=== PATIENT | female | born 1975 | race Two or more races ===

== ENCOUNTER → 2023-12-31 17:26 | Outpatient (REF) | payer OTHER, SELFPAY | LOC: MRI 17:26 | PROVIDERS: ATTENDING PHYSICIAN Internal Medicine Gastroenterology; FAMILY PHYSICIAN Emergency Medicine | DX: K62.9 Disease of anus and rectum, unspecified (principal) | CPT/HCPCS: 72197; A9575 ==

== ENCOUNTER 2024-02-22 11:47 | Emergency (ER) | payer OTHER, SELFPAY ==
[2024-02-22 11:53] VITALS: BP 108/85
--- NOTE | 2024-02-22 12:32 | ED.GENMED ---
History of Present Illness
<Janice Gutierrez PA-C - Last Filed: 02/22/24 16:57>
General
Chief Complaint: Fatigue
Source: patient
Exam Limitations: none
Time Seen by Provider: 02/22/24 12:11
Nursing documentation reviewed up to this point in time: agreed with
Travel History
Have you had any contact with someone who has COVID-19?: No
Do you have any symptoms of coronavirus? Fever > 100 degrees, chills, cough, shortness of breath, sore throat, loss of taste or smell, muscle aches, or headache?: No
History of Present Illness
History of Present Illness:
Patient is a 48 year old female with history HTN presenting to the emergency department for evaluation of fatigue and generalized body aches for one day. Patient states symptoms started yesterday morning when she woke up and describes generalized
bodyaches and fatigue worsening throughout the day yesterday and today. She reports mild headache and some mild lower abdominal pain today. She does endorse a possible subjective fever yesterday. She took Advil this morning around 11 AM with
improvement in symptoms. Patient denies any chest pain, shortness of breath, nausea, vomiting, or anorexia. She denies any sore throat or cough. She does report possible dysuria about a week ago. Denies any back pain.
Patient was seen by her primary care provider this morning where she had a negative COVID and flu test. She was sent to the emergency department for 'lab work to make sure her organs are functioning okay '.
Patient has a history of an anal fistula and she is following with GI planning for surgery in the next few weeks.
Phy Exam
<Janice Gutierrez PA-C - Last Filed: 02/22/24 16:57>
Physical Exam
Physical Exam:
Vitals: Mildly tachycardic, otherwise vital signs stable
General: Patient is well appearing, no acute distress. Nontoxic appearing
Skin: Warm and dry, no rashes or lesions
Head: Normocephalic, atraumatic
Eyes: Sclera nonicteric. EOMs intact. No nystagmus.
Throat: Protecting airway. Uvula midline. Posterior pharynx nonerythematous not any tonsillar exudates or edema
Neck: Normal ROM, no cervical spine tenderness, no meningismus
Cardiac: Regular rate and rhythm, no murmurs.
Pulm: Normal respiratory effort, no wheezes, rales, rhonchi heard on exam.
Abdomen: Abdomen soft with mild diffuse abdominal tenderness. No rebound tenderness or guarding.
Extremities: No evidence of cyanosis or edema. Strength 5 out of 5 in upper and lower extremities
Neuro: AAOx3. CN II-XII intact. No focal neurologic deficits.
Psychiatric: Normal affect.
Course
<Janice Gutierrez PA-C - Last Filed: 02/22/24 16:57>
Orders/Labs/Results
Orders:
Orders
02/22/24 12:43
0.9% Sodium Chloride 1000 ml [Nss] 1,000 ml IV BOLUS
02/22/24 12:58
Complete Blood Count/With Diff Urgent
Comprehensive Metabolic Panel Urgent
Creatine Phosphokinase Urgent
Comment: ADD ON
Urinalysis Reflex To Culture Urgent
Date Specimen was Collected: 02/22/24
Time Specimen was Collected: 12:48
02/22/24 13:21
Add On- LAB Urgent
Tests Added?: CPK
02/22/24 14:13
Acetaminophen [Tylenol] 650 mg PO NOW STA
Abnormal Lab Results
02/22/24
12:58
RBC 3.79 L 10^6/uL
(4.20-5.40)
Hgb 11.3 L g/dL
(12.0-16.0)
Hct 32.8 L %
(37.0-47.0)
Absolute Lymphs (auto) 0.5 L 10^3/uL
(1.2-3.4)
Neutrophils % 87.2 H %
(42.2-75.2)
Lymphocytes % 9.4 L %
(20.5-51.1)
BUN 6 L mg/dl
(7-17)
Creatinine 0.5 L mg/dL
(0.6-1.0)
02/22/24 12:58
02/22/24 12:58
Vital Signs
Initial and Last Documented VS:
Initial Vital Signs
Temp Pulse Resp BP Pulse Ox
99.2 F 104 16 108/85 97
02/22/24 11:53 02/22/24 11:53 02/22/24 11:53 02/22/24 11:53 02/22/24 11:53
Last Documented Vital Signs
Temp Pulse Resp BP Pulse Ox
99.2 F 75 16 135/74 97
02/22/24 14:00 02/22/24 13:06 02/22/24 13:06 02/22/24 14:00 02/22/24 14:00
<Ken Banks MD - Last Filed: 02/22/24 16:11>
Orders/Labs/Results
Orders:
Orders
02/22/24 12:43
0.9% Sodium Chloride 1000 ml [Nss] 1,000 ml IV BOLUS
02/22/24 12:58
Complete Blood Count/With Diff Urgent
Comprehensive Metabolic Panel Urgent
Creatine Phosphokinase Urgent
Comment: ADD ON
Urinalysis Reflex To Culture Urgent
Date Specimen was Collected: 02/22/24
Time Specimen was Collected: 12:48
02/22/24 13:21
Add On- LAB Urgent
Tests Added?: CPK
02/22/24 14:13
Acetaminophen [Tylenol] 650 mg PO NOW STA
Abnormal Lab Results
02/22/24
12:58
RBC 3.79 L 10^6/uL
(4.20-5.40)
Hgb 11.3 L g/dL
(12.0-16.0)
Hct 32.8 L %
(37.0-47.0)
Absolute Lymphs (auto) 0.5 L 10^3/uL
(1.2-3.4)
Neutrophils % 87.2 H %
(42.2-75.2)
Lymphocytes % 9.4 L %
(20.5-51.1)
BUN 6 L mg/dl
(7-17)
Creatinine 0.5 L mg/dL
(0.6-1.0)
02/22/24 12:58
02/22/24 12:58
Vital Signs
Initial and Last Documented VS:
Initial Vital Signs
Temp Pulse Resp BP Pulse Ox
99.2 F 104 16 108/85 97
02/22/24 11:53 02/22/24 11:53 02/22/24 11:53 02/22/24 11:53 02/22/24 11:53
Last Documented Vital Signs
Temp Pulse Resp BP Pulse Ox
99.2 F 75 16 135/74 97
02/22/24 14:00 02/22/24 13:06 02/22/24 13:06 02/22/24 14:00 02/22/24 14:00
<Janice Gutierrez PA-C - Last Filed: 02/22/24 16:57>
MDM/Problems Addressed
Differential Diagnosis Includes:
Not limited to: Viral illness, dehydration, UTI, anemia
MDM/Problems Addressed:
Patient is a 48 year old female presenting for generalized body aches and fatigue x 2 days. Seen by PCP earlier today with negative covid + flu test and sent to ED for labwork. Denies sore throat, cough. Vital signs are stable. She is initially
mildly tachycardic on arrival but heart rate has normalized. Patient is afebrile. Exam as above. She is nontoxic appearing. Regular rate and rhythm. Lungs clear bilaterally. Abdomen soft and very mild diffuse tenderness. No clinical evidence
of DVT on exam. Main complaint is myalgias. She does state that over the past 24 hours ibuprofen has decreased her symptoms. Suspect likely viral illness. Given presumed negative COVID and flu earlier today�will not recheck at this point. Will
check basic labs, CPK given myalgias. Will check urinalysis. IV fluids, Tylenol.
Labs noted. No leukocytosis. No clinically significant abnormalities. CK is normal. Urinalysis shows no signs infection. No evidence of rhabdomyolysis.
Workup here essentially negative. No evidence of rhabdomyolysis. I suspect likely viral in origin. Improved following IV fluids and Tylenol. Patient remains afebrile, nontoxic-appearing. Stable for discharge with close return precautions,
supportive care. Recommended NSAIDs, adequate hydration. PCP follow-up. All questions answered. Patient comfortable with plan
Chronic conditions affecting care:
N/A
Acute Exacerbation and/or Progression of Chronic Illness:
N/A
<Janice Gutierrez PA-C - Last Filed: 02/22/24 16:57>
*Pulse Oximetry
Patient hypoxic: no
*EKG
Interpreted by ED Provider?: NA
*[employer] Interpretation
Rate: [employer]- N/A
*Critical Care Note
Total Time (30-74mins, 75-104mins- exclusive of procedures): Not Applicable
ED Attending Note
<Janice Gutierrez PA-C - Last Filed: 02/22/24 16:57>
-
Portions of this chart may have been created with voice recognition software.� Occasional wrong word or��sound alike� substitutions may have occurred due to the inherent limitations of voice recognition software.
<Ken Bansk MD - Last Filed: 02/22/24 16:11>
ED Attending Note
Patient seen and examined by attending physician: Yes
ED Attending Note:
HPI: 48-year-old female with a past medical history of hypertension on lisinopril who presents to the emergency department with her for evaluation of fatigue and myalgias. Patient reports onset of symptoms a few days ago and they have been
essentially constant since then particularly severe over the past 24 hours. She reports that she has had mainly significant myalgias throughout her entire body. She says that she has had some restlessness of her legs. She says that she has had
generalized fatigue and malaise. She says she has had subjective fevers and chills. She denies any cough or congestion. Denies any shortness of breath or chest pain. Denies any abdominal pain. No nausea, vomiting, diarrhea. No urinary
symptoms. She denies any other specific complaints. She apparently had negative flu and COVID swabs at the doctor's office and was referred to the emergency room for further assessment.
ROS: Positive for fatigue, myalgias, fever; negative for cough, congestion, shortness of breath, chest pain, abdominal pain, nausea, vomiting, diarrhea, dysuria, hematuria, change in urinary frequency
Physical exam:
General: Awake, alert, oriented x3; no acute distress
Head: Normocephalic, atraumatic
Eyes: Conjunctiva normal, EOMI, sclera anicteric
Throat: Airway intact, handling secretions, moist mucous membranes
Neck: Trachea midline, supple without meningismus
Lungs: Clear to auscultation bilaterally, no wheezing, rales, rhonchi
Heart: Regular rate and rhythm, no murmurs, gallops, or rubs
Abd: Soft, non distended, nontender
Neuro: Cranial nerves grossly intact, speech fluid
Skin: no rash
Extremities: No edema in extremities, equal pulses in all extremities
Differential diagnosis: Viral syndrome, myositis, rhabdomyolysis, depression, fibromyalgia, electrolyte derangement (hypercalcemia, etc), nutritional deficiency, dehydration
Medical decision makin-year-old female with history of hypertension presents for evaluation of myalgias, fatigue, malaise over the past few days worse since yesterday. She was tachycardic in triage normalized by my assessment, vitals otherwise
normal. Physical exam as above. We sent basic labs including a CBC and a CMP which were unremarkable. She has a normal CPK. Her urinalysis is normal. She has been taking NSAIDs at home which seems to help with her symptoms. Suspect this may be
mild viral illness, perhaps myositis although somewhat lower suspicion as she has no muscle weakness. No clear indication for admission at this point, I think she is clinically stable to follow-up with her primary doctor for these issues. Advised
NSAIDs, good p.o. hydration and outpatient PCP follow-up. Spoke about return precautions all questions answered.
Chronic conditions affecting care: N/A
Acute exacerbation or progression of chronic illness: N/A
History source: Patient, spouse
Data reviewed: N/A
Medications/testing considered: N/A
Social determinants of health: N/A
Discussion with other providers: N/A
Discharge Plan
Departure
Patient Disposition: Home (Routine Discharge)
Date of Disposition: 02/22/24
Time of Disposition: 14:35
Patient with high blood pressure during this ER visit?: No
Condition: Good
Covid-19: Negative COVID-19
Discharge Problem:
Myalgia, Fatigue
Instructions: Fatigue (DC)
Prescriptions:
No Action
ibuprofen [Advil] 200 mg Tablet
200 mg PO Q6HPRN PRN (Reason: mild pain)
lisinopril 2.5 mg Tablet
2.5 mg PO DAILY
Referrals:
Sweetie Garcia MD [Family Provider] - Follow up in 5-7 days
Activity Restrictions/Additional Instructions:
- Return to the emergency department for any high fevers, severe headache, severe neck pain, intractable nausea/vomiting, severe abdominal pain, intractable pain, worsening current symptoms, or any other concerns
-Is important stay well-hydrated. You can take Motrin/ibuprofen (400mg) every 6 hours as needed for discomfort/fever. Stay well rested
-You should follow-up with your primary care provider in a few days to ensure symptoms are improving
Interventions
Interventions:
*Risk Screen - Suicide Last Done: 02/22/24 11:53
*General Assessment Last Done: 02/22/24 11:53
*Neglect/Abuse Screening Last Done: 02/22/24 11:53
*ED COVID-19 Vaccine History Last Done: 02/22/24 11:53
*Nursing Disposition Last Done: 02/22/24 14:54
Discharge Date and Time
Discharge Date/Time: 02/22/24 14:54
Print Language: AZERBAIJANI
[2024-02-22] MEDS: NSS 1000 IV (12:57)
[2024-02-22 13:06] VITALS: BP 114/68
[2024-02-22 13:19] LABS: % Basophils 0.2 % (0-2); % Immature Granulocytes 0.4 % (0-0.5); % Lymphocytes 9.4 % (20.5-51.1); % Monocytes 2.8 % (1.7-9.3); % Neutrophils 87.2 % (42.2-75.2); Absolute Lymphocytes 0.5 10^3/uL (1.2-3.4); Absolute Monocytes 0.2 10^3/uL (0.1-0.6); Absolute Neutrophils 4.7 10^3/uL (1.4-6.5); Hematocrit 32.8 % (37.0-47.0); Hemoglobin 11.3 g/dL (12.0-16.0); Mean Corp Hgb Conc. 34.5 g/dL (33.0-37.0); Mean Corpuscular Hgb 29.8 pg (27.0-31.0); Mean Corpuscular Volume 86.5 fL (81.0-99.0); Nucleated Red Blood Cells % 0 %; Platelet Count 241 10^3/uL (130-400); Red Blood Cell Count 3.79 10^6/uL (4.20-5.40); Red Cell Dist. Width 13.7 % (11.5-14.5); White Blood Cell Count 5.4 10^3/uL (4.8-10.8)
[2024-02-22 13:22] LABS: Urine Albumin Negative (Neg - Trace); Urine Bilirubin Negative (Negative); Urine Character Clear (Clear); Urine Color Yellow; Urine Glucose Negative (Negative); Urine Ketone Negative (Negative); Urine Leukocyte Negative (Negative); Urine Nitrite Negative (Negative); Urine Occult Blood Negative (Negative); Urine Specific Gravity 1.005 (<1.030); Urine Urobilinogen Negative (Neg - 1+)
[2024-02-22 13:30] LABS: ALT (SGPT) 17 U/L (0-35); AST (SGOT) 21 U/L (14-36); Albumin 3.8 g/dl (3.5-5.0); Alkaline Phosphatase 53 U/L (38-126); Blood Urea Nitrogen 6 mg/dl (7-17); Calcium 8.8 mg/dl (8.4-10.2); Carbon Dioxide 25 mmol/L (22-30); Chloride 104 mmol/L (98-107); Glucose 98 mg/dl (70-99); Sodium 136 mmol/L (135-145); Total Bilirubin 0.4 mg/dl (0.2-1.3); Total Protein 7.2 g/dl (6.3-8.2); eGFR > 60.00
[2024-02-22 13:40] LABS: Creatine Phosphokinase 46 U/L (30-135)
[2024-02-22 14:00] VITALS: BP 135/74
[2024-02-22] MEDS: TYLENOL 650 MG PO (14:29)
== END 2024-02-22 14:54 | disposition home or self-care (01) ==
LOC: EMR 11:47
PROVIDERS: Physician Assistant; EMERGENCY PHYSICIAN Emergency Medicine; FAMILY PHYSICIAN Emergency Medicine
DX: M79.10 Myalgia, unspecified site (principal); R53.83 Other fatigue; I10 Essential (primary) hypertension
CPT/HCPCS: 99283; 96360; 80053; 81003; 82550; 85025

== ENCOUNTER 2025-01-26 01:22 | Emergency (ER) | payer OTHER, SELFPAY ==
[2025-01-26 01:33] VITALS: BP 153/99
[2025-01-26 01:55] LABS: % Basophils 0.4 % (0-2); % Eosinophils 2.5 % (0-6); % Immature Granulocytes 0.3 % (0-0.5); % Lymphocytes 31.9 % (20.5-51.1); % Monocytes 4.5 % (1.7-9.3); % Neutrophils 60.4 % (42.2-75.2); Absolute Eosinophils 0.2 10^3/uL (0-0.7); Absolute Lymphocytes 2.4 10^3/uL (1.2-3.4); Absolute Monocytes 0.3 10^3/uL (0.1-0.6); Absolute Neutrophils 4.6 10^3/uL (1.4-6.5); Hematocrit 37.3 % (37.0-47.0); Hemoglobin 12.8 g/dL (12.0-16.0); Mean Corp Hgb Conc. 34.3 g/dL (33.0-37.0); Mean Corpuscular Volume 87.6 fL (81.0-99.0); Mean Platelet Volume 10.2 fL (7.4-10.4); Nucleated Red Blood Cells % 0 %; Platelet Count 305 10^3/uL (130-400); Red Blood Cell Count 4.26 10^6/uL (4.20-5.40); Red Cell Dist. Width 13.5 % (11.5-14.5); White Blood Cell Count 7.6 10^3/uL (4.8-10.8)
[2025-01-26 02:11] LABS: ALT (SGPT) 19 U/L (0-35); AST (SGOT) 25 U/L (14-36); Albumin 4.5 g/dl (3.5-5.0); Alkaline Phosphatase 83 U/L (38-126); Blood Urea Nitrogen 15 mg/dl (7-17); Calcium 9.8 mg/dl (8.4-10.2); Carbon Dioxide 25 mmol/L (22-30); Chloride 107 mmol/L (98-107); Glucose 123 mg/dl (70-99); Sodium 142 mmol/L (135-145); Total Bilirubin 0.4 mg/dl (0.2-1.3); Total Protein 8.2 g/dl (6.3-8.2); eGFR > 60.00
[2025-01-26 02:17] LABS: Troponin I < 0.012 ng/ml
[2025-01-26 02:33] VITALS: BP 129/88
[2025-01-26 02:44] VITALS: BMI 27.7
--- NOTE | 2025-01-26 02:49 | ED.GENMED ---
History of Present Illness
General
Chief Complaint: Chest Pain
Source: patient
Time Seen by Provider: 01/26/25 02:30
History of Present Illness
History of Present Illness:
This patient is a 49-year-old female with a history of hypertension who states that her blood pressure medication was just changed yesterday because it was not well-controlled with the lisinopril that she was taken, and she was transition to
losartan. She states that when she took her blood pressure tonight it was noted to be elevated, recorded as 1 60/120 and then 151/107. With this, she noted frontal headache, 'tight' feeling in the left neck and arm area, and slightly short of
breath. She denies photophobia, numbness, tingling, focal weakness, change in vision, change in speech, change in balance, abdominal pain, swelling, fever, chills, or other complaints. When asked about chest pain, she states that the 'tight'
feeling did radiate into the chest for short period of time. She now feels significantly better and now just has a slight headache.
Past History
Past History
ED Past Medical History: HTN and Other (Prediabetes)
ED Past Surgical History: and Gynecological
Social History
Tobacco: Non-smoker
Alcohol: None
Drug: None
Personal:
Living: with family
Phy Exam
Physical Exam
Physical Exam:
GENERAL: Alert , in no apparent distress
EYE: pupils equal and reactive
NECK: Supple, no significant adenopathy.
ENT: o/p clr, mmm.
CARDIAC: Regular rate and rhythm .
LUNGS: Clear breath sounds bilaterally, no acute respiratory distress, no wheezes/rales/rhonchi
ABDOMEN: Soft, without focal tenderness, no r/g, no cvat
NEUROLOGICAL: Alert and oriented, no focal neuro deficits, [id number] normal, motor 5 out of 5, sensory intact, cranial nerves II through XII intact
SKIN: Warm and dry, skin intact.
MUSCULOSKELETAL: No edema, well perfused.
PSYCH: Normal and appropriate interaction.
Scores
Heart Score for Chest Pain Patients
STEMI patient?: Not applicable
Course
Orders/Labs/Results
Orders:
Orders
01/26/25 01:24
Electrocardiogram (*1) Urgent
Reason for Study: Chest Pain
EKG- Treatment ONCE
01/26/25 01:46
Complete Blood Count/With Diff Urgent
Comprehensive Metabolic Panel Urgent
Troponin I Urgent
01/26/25 04:42
Troponin I Urgent
Abnormal Lab Results
01/26/25
01:46
Glucose 123 H mg/dl
(70-99)
01/26/25 01:46
01/26/25 01:46
Vital Signs
Initial and Last Documented VS:
Initial Vital Signs
Temp Pulse Resp BP Pulse Ox
98.7 F 90 22 153/99 100
01/26/25 01:33 01/26/25 01:33 01/26/25 01:33 01/26/25 01:33 01/26/25 01:33
Last Documented Vital Signs
Temp Pulse Resp BP Pulse Ox
98.7 F 64 17 134/78 99
01/26/25 01:33 01/26/25 05:00 01/26/25 05:00 01/26/25 05:00 01/26/25 05:00
*Critical Care Note
Total Time (30-74mins, 75-104mins- exclusive of procedures): Not Applicable
Update Note
Update Note:
Patient presents to the Emergency Department with hypertension
Number and Complexity of Problems Addressed at the Encounter
� Chronic conditions affecting care:
� Acute Exacerbation and/or Progression of Chronic Illness:
� Differential Diagnosis includes: But not limited to hypertensive urgency, hypertensive emergency, ACS, etc. etc. etc.
Amount and/or Complexity of Data to be Reviewed and Analyzed
� I performed an independent evaluation of and my interpretation is:
EKG: Read by me, normal sinus rhythm, normal rate, normal axis, no acute ischemia
CT:
Xrays:
Laboratory Studies: Generally unremarkable
Other:
� Review of other/old records reveals:
� Clinical information was obtained by an independent historian:
� Prescriptions/Medications Considered but not given:
� Further testing considered but not performed:
Risk of Complications and/or Morbidity or Mortality of Patient Management
� Social determinants of health affecting care:
� Discussion with other providers (PCP, Hospitalists, Consultants, etc):
� Escalation of care including admission/observation vs risk of discharge considered:
ED Attending Note
-
Portions of this chart may have been created with voice recognition software.� Occasional wrong word or��sound alike� substitutions may have occurred due to the inherent limitations of voice recognition software.
Discharge Plan
Departure
Patient Disposition: Home (Routine Discharge)
Date of Disposition: 01/26/25
Time of Disposition: 05:22
Patient with high blood pressure during this ER visit?: Yes
Condition: Good
Discharge Problem:
Chest pain
Instructions: Chest Pain PCP Follow Up, BLOOD PRESSURE
Prescriptions:
No Action
losartan
25 mg PO DAILY
Referrals:
Sweetie Garcia MD [Family Provider] - Tomorrow
Activity Restrictions/Additional Instructions:
IF YOU DEVELOP SEVERE HEADACHE, NUMBNESS, CHANGE IN VISION, CHEST PAIN, SHORTNESS OF BREATH, OR OTHER WORRISOME SIGNS, PLEASE RETURN TO THE ER IMMEDIATELY!
Interventions
Interventions:
*Risk Screen - Suicide Last Done: 01/26/25 01:33
*General Assessment Last Done: 01/26/25 02:48
*Neglect/Abuse Screening Last Done: 01/26/25 02:48
*ED- Fall Risk Assessment Last Done: 01/26/25 02:43
*ED COVID-19 Vaccine History Last Done: 01/26/25 02:43
ED- Cardiac Assessment Last Done: 01/26/25 02:45
Discharge Date and Time
Print Language: LITHUANIAN
[2025-01-26 03:00] VITALS: BP 137/77
[2025-01-26 04:00] VITALS: BP 140/90
[2025-01-26 05:00] VITALS: BP 134/78
[2025-01-26 05:13] LABS: Troponin I < 0.012 ng/ml
[2025-01-26 05:52] VITALS: BP 134/78
== END 2025-01-26 06:06 | disposition home or self-care (01) ==
LOC: EMR 01:22
PROVIDERS: EMERGENCY PHYSICIAN Emergency Medicine; FAMILY PHYSICIAN Emergency Medicine
DX: R07.89 Other chest pain (principal); I10 Essential (primary) hypertension
CPT/HCPCS: 99284; 80053; 84484; 85025; 93005